=== PATIENT | female | born 1975 | race Caucasian/White ===

== ENCOUNTER 2024-04-09 09:30 | Outpatient (RCR) | payer OTHER, SELFPAY | END 2024-05-07 23:59 | disposition home or self-care (01) | LOC: ANHDMC 09:30 | PROVIDERS: Visit Provider Physician Assistant | DX: E11.9 Type 2 diabetes mellitus without complications (principal); Z71.89 Other specified counseling; E66.01 Morbid (severe) obesity due to excess calories | CPT/HCPCS: G0108 ==

== ENCOUNTER 2024-05-23 10:27 | Outpatient (RCR) | payer OTHER, SELFPAY | END 2024-08-19 13:53 | disposition home or self-care (01) | LOC: ANHDMC 10:27 | PROVIDERS: Visit Provider Physician Assistant | DX: E11.9 Type 2 diabetes mellitus without complications (principal); Z71.89 Other specified counseling | CPT/HCPCS: G0108 ==